=== PATIENT | female | born 1960 | race African-American/Black ===

== ENCOUNTER 2018-06-14 14:31 | Emergency (ER) | payer BC ==
--- NOTE | 2018-06-14 14:35 | PDOC ---
History of Present Illness - General History Source: Patient Exam Limitations: No Limitations - History of Present Illness Initial Comments: 06/14/18 15:53 The patient is a 57 year old female, with a significant PMH of HTN and colon cancer ( on chemo last dose last week), who presents to the emergency department with intermittent vertigo that began 2 days ago. The patient states first episode of vertigo began 2 days ago when patient sat upright from a lying position. The patient states vertigo lasted a couple of minutes accompanied with vomiting, diarrhea and fatigue. She complains vertigo worsened today, last episode was one hour ago and exacerbated with sudden movements. The episodes are shorter acting today and denies any associated n/v. The patient also mentions she went to chemotherapy last week where they told her blood count was low and needed infusion of iron. The patient denies any vision changes, dysarthria, numbness weaknes and tingling. Denies chest pain, shortness of breath, headache and dizziness. Denies fever, chills, nausea, vomit, diarrhea and constipation. Pt denies any dysuria, frequency, coughing, sneezing, shore throat. Allergies: NKDA Past surgical history: Colectomy Social history: None reported PCP: Patricia Esteves <Americo Cheng - Last Filed: 06/14/18 15:52> <Pawel Mims - Last Filed: 06/14/18 19:22> - General Chief Complaint: Lightheaded Stated Complaint: VERTIGO Time Seen by Provider: 06/14/18 14:34 Past History <Americo Cheng - Last Filed: 06/14/18 15:52> <Pawel Mims - Last Filed: 06/14/18 19:22> - Past Medical History Allergies/Adverse Reactions: Allergies Allergy/AdvReac Type Severity Reaction Status Date / Time No Known Allergies Allergy Verified 06/14/18 14:33 Home Medications: Ambulatory Orders Diazepam [Valium] 2 mg PO BID PRN #7 tablet MDD 2 06/14/18 Levothyroxine [Synthroid -] 150 mcg PO DAILY 06/14/18 Lisinopril [Zestril] 40 mg PO DAILY 06/14/18 Ondansetron HCl [Zofran] 4 mg PO TID PRN 06/14/18 Review of Systems - Review of Systems Able to Perform ROS?: Yes Comments:: 06/14/18 15:53 Constitutional - Pt denies Fever, Chills, weakness, HEENT: denies vision changes, sore throat Respiratory: Denies cough, sob, hemoptysis Cardiac: denies chest pain, palpitations, light headedness, leg swelling Abd/GI: denies abd pain, nausea, vomiting, blood per rectum, melena, diarrhea : denies dysuria, frequency, discharge Musculskelatal - denies back pain, joint swelling skin - denies bruising, erythema, rash neurological: +Vertigo + lightheaded. denies headache, numbness, focal weakness , tingling, ataxia, weakness hematologic: denies anemia, easy bruising, easy bleeding HEENTM: Yes: Symptoms Reported <Americo Cheng - Last Filed: 06/14/18 15:52> *Physical Exam - Vital Signs Last Vital Signs Temp Pulse Resp BP Pulse Ox 98.4 F 61 16 144/96 100 06/14/18 14:33 06/14/18 14:33 06/14/18 14:33 06/14/18 14:33 06/14/18 14:33 - Physical Exam Comments: 06/14/18 15:54 GENERAL: The patient is awake, alert, and fully oriented, Nontoxic - in no acute distress. HEAD: Normocephalic, atraumatic. EYES: extraocular movements intact, sclera anicteric, conjunctiva clear. extinguishing horizontal nystamgus ENT: Normal voice, Moist mucous membranes. NECK: Normal range of motion, supple without lymphadenopathy, JVD, or masses. LUNGS: Breath sounds equal, clear to auscultation bilaterally. No wheezes, no crackles, no rales. HEART: Regular rate and rhythm, normal S1 and S2 without murmur, rub or gallop. ABDOMEN: Soft, nontender, normoactive bowel sounds. No guarding, no rebound. No masses. EXTREMITIES: Normal range of motion, no edema. No clubbing or cyanosis. No cords, erythema, or tenderness. PSYCH: Normal mood, normal affect. SKIN: Warm, Dry, normal turgor, no rashes or lesions noted. NEURO: Mental status: The patient is oriented x3. Cranial nerves: Cranial nerves II through XII are intact Motor: The upper extremities are 5 over 5 in all muscle groups. The lower extremities are 5 over 5 in all muscle groups. Negative pronator drift Sensation: Sensation is intact to light touch throughout. romberg negative Cerebellar: Rcekis-ujhmeb-pnns is normal in both upper extremities. Heel-knee- najera is normal in both lower extremities. rapid alternating movements are normal.. Gait: Normal. <Americo Cheng - Last Filed: 06/14/18 15:52> Heart Score/ECG Review - ECG Impressions Comment:: 06/14/18 19:21 Twelve-lead EKG was performed and reviewed by me. There is normal sinus rhythm with a heart rate of 53 Normal axis Nonspecific T wave flattening in the lateral leads <Pawel Mims - Last Filed: 06/14/18 19:22> ED Treatment Course - LABORATORY CBC & Chemistry Diagram: 06/14/18 15:10 06/14/18 15:10 - ADDITIONAL ORDERS Additional order review: Laboratory Results 06/14/18 15:10 Sodium 140 Potassium 3.5 Chloride 105 Carbon Dioxide 30 H Anion Gap 5 L BUN 13 Creatinine 0.9 Creat Clearance w eGFR > 60 Random Glucose 100 Calcium 8.6 Total Bilirubin 0.6 AST 26 ALT 14 Alkaline Phosphatase 85 Total Protein 7.2 Albumin 3.9 06/14/18 15:10 RBC 3.11 L MCV 89.9 MCHC 33.0 RDW 22.0 H MPV 7.7 Neutrophils % No Result Required. Lymphocytes % No Result Required. - Medications Given in the ED: ED Medications Discontinued Medications Generic Name Dose Route Start Last Admin Trade Name Freq PRN Reason Stop Dose Admin Sodium Chloride 1,000 mls @ 1,000 mls/hr 06/14/18 14:46 06/14/18 15:10 Normal Saline - IV 06/14/18 15:45 1,000 mls/hr .Q1H ONE Administration Meclizine HCl 25 mg 06/14/18 14:45 06/14/18 15:05 Antivert - PO 06/14/18 14:46 25 mg ONCE ONE Administration Ondansetron HCl 4 mg 06/14/18 14:45 06/14/18 15:12 Zofran Injection IVPB 06/14/18 14:46 4 mg ONCE ONE Administration <Americo Cheng - Last Filed: 06/14/18 15:52> - LABORATORY CBC & Chemistry Diagram: 06/14/18 15:10 06/14/18 15:10 <Pawel Mims - Last Filed: 06/14/18 19:22> Medical Decision Making - Medical Decision Making 06/14/18 14:45 57y F hx of colon ca sp resecton currently o chemo (last dose last week), hypothyroidism, htn, presents with complaint of intermittent vertigo for th epast few days - present with suddent movements , lasting for a few seconds befor resolving, without associated vision changes, dysarthria, numbness/ tingling/weakness, neck pain, cp, sob, or any other focal complaints. pts exam unremarkble inculding normal cerebellar, neuro exam suspect vertigo - will obtain basic labs to r/o anemia, metabolic dernagement, consider infection due to the patients recent chemo use tobias obtain ua to r/o uti tobias give meclizine 06/14/18 17:19 pts labs reviewed noted to be slightly anemic, labs otherwise unrmarkble pt notes she feels a bit worse than before - notes any head movement makes her feel very vertiginous and uncomfortable and nauseus discussed obtining CT head due to her colon ca with concern of mets, howeve rpt waants to hold off - will reassess after she gets a dose of reglan and valium. pts exam othewise is benigng, normal finger to nose on erpeat exam. 06/14/18 17:55 pt feeling significantly improved complete resolutino of her sypmtoms ambulting around ED without any sypmtoms will dc the pt with pmdand neuro fu return precautions were discussed I discussed the physical exam findings, ancillary test results and final diagnoses with the patient. I answered all of the patient's questions. The patient was satisfied with the care received and felt comfortable with the discharge plan and treatment plan. The patient will call their primary care physician within 24 hours to arrange follow-up and will return to the Emergency Department with any new, persistent or worsening symptoms. <Pawel Mims - Last Filed: 06/14/18 19:22> *DC/Admit/Observation/Transfer - Attestations Scribe Attestion: 06/14/18 15:54 Documentation prepared by Americo Cheng, acting as medical massage therapist for Pawel Mims MD. <Americo Cheng - Last Filed: 06/14/18 15:52> - Discharge Dispostion Decision to Admit order: No <Pawel Mims - Last Filed: 06/14/18 19:22> Diagnosis at time of Disposition: Vertigo - Discharge Dispostion Disposition: HOME Condition at time of disposition: Improved - Prescriptions Prescriptions: Diazepam [Valium] 2 mg PO BID PRN #7 tablet MDD 2 PRN Reason: Vertigo - Referrals Referrals: Patricia Esteves [Primary Care Provider] - - Patient Instructions Printed Discharge Instructions: DI for Vertigo Additional Instructions: Return to the emergency department immediately with ANY new, persistent or worsening symptoms. After a share discussion, we decided to hold off on obtaining any imaging - please follow up with your doctor for further evaluation - if you symptoms return, I highly recommend obtaining the CT we discussed and following up with neurology. (Or come back to the Emergency Department and we will complete these tests). You MUST call and follow up with Dr. Rai next week for further evaluation of your symptoms. Results were discussed with you. Please make sure your doctor reviews the results of your emergency evaluation. Print Language: PANAMANIAN - Post Discharge Activity
[2018-06-14] MEDS ORDERED: MECLIZINE HCL 25 MG TABLET (FP) PO ONE (14:45)
[2018-06-14] MEDS ORDERED: ONDANSETRON 4 MG/2 ML VIAL IVPB ONE (14:45)
[2018-06-14 14:46] VITALS: BP 144/96; PULSE 61; TEMP 98.4; BMI 26.6
[2018-06-14] MEDS ORDERED: SODIUM CHLORIDE 1,000 ML IV ONE (14:46)
[2018-06-14] MEDS ORDERED: MECLIZINE HCL 25 MG TABLET (FP) ONE (14:59)
[2018-06-14] MEDS ORDERED: ONDANSETRON 4 MG/2 ML VIAL ONE (15:00)
[2018-06-14 15:40] LABS: HEMOGLOBIN 9.2 GM/dl (10.7-15.3); MCH 29.7 pg (25.7-33.7); MEAN CELL VOLUME 89.9 fl (80-96); MEAN PLT VOLUME 7.7 fl (7.5-11.1); PLATELET COUNT 183 K/MM3 (134-434); RBC 3.11 M/mm3 (3.60-5.2); WHITE BLOOD COUNT 4.1 K/mm3 (4.0-10.8)
[2018-06-14 15:41] LABS: ADD RBC MORPHOLOGY YES
[2018-06-14 15:42] LABS: ALBUMIN 3.9 g/dl (3.5-5.0); ALK PHOS 85 U/L (32-92); ANION GAP 5 MMOL/L (8-16); BILIRUBIN,TOTAL 0.6 mg/dl (0.2-1.0); BLOOD UREA NITROGEN 13 mg/dl (7-18); CALCIUM 8.6 mg/dl (8.4-10.2); CHLORIDE 105 mmol/L (98-107); CO2 30 mmol/L (22-28); CREATININE 0.9 mg/dl (0.6-1.3); GLUCOSE,RANDOM 100 mg/dl (74-106); POTASSIUM 3.5 mmol/L (3.5-5.1); SGOT/AST 26 U/L (10-42); SGPT/ALT 14 U/L (10-40); SODIUM 140 mmol/L (136-145); TOT PROT 7.2 g/dl (6.4-8.3)
[2018-06-14 16:26] LABS: ANISOCYTOSIS 2+; PLATELET ESTIMATE ADEQUATE
[2018-06-14 16:40] LABS: URINE APPEARANCE Clear; URINE BILIRUBIN Negative (NEGATIVE); URINE COLOR Yellow; URINE GLUCOSE (UA) Negative (NEGATIVE); URINE KETONE Negative (NEGATIVE); URINE LEUK ESTERASE TRACE (NEGATIVE); URINE NITRITE Negative (NEGATIVE); URINE PROTEIN Negative (NEGATIVE); URINE UROBILINOGEN 0.2 (0.2-1.0)
[2018-06-14 16:51] LABS: URINE BACTERIA FEW /hpf (NEGATIVE); URINE RBC 0-2 /hpf (0-3)
[2018-06-14] MEDS ORDERED: diazePAM 2 MG TABLET PO ONE (17:19)
[2018-06-14] MEDS ORDERED: METOCLOPRAMIDE HCL INJECTION 10 MG/2 ML VIAL IVPUSH ONE (17:19)
[2018-06-14] MEDS ORDERED: diazePAM 2 MG TABLET ONE (17:24)
--- NOTE | 2018-06-15 19:09 | EKG ---
Test Reason : Blood Pressure : / mmHG Vent. Rate : 053 BPM Atrial Rate : 053 BPM P-R Int : 166 ms QRS Dur : 060 ms QT Int : 492 ms P-R-T Axes : 080 000 -59 degrees QTc Int : 461 ms SINUS BRADYCARDIA NONSPECIFIC ST AND T WAVE ABNORMALITY ABNORMAL ECG NO PREVIOUS ECGS AVAILABLE Confirmed by PANCHO PIERRE MD ([id number]) on 06/15/2018 7:08:48 PM Referred By: ALEXIS FEGRUSON Confirmed By:PANCHO PIERRE MD
== END 2018-06-14 18:07 | disposition home or self-care (01) ==
LOC: FER 14:31
PROC: 3E033GC Introduction of Other Therapeutic Substance into Peripheral Vein, Percutaneous Approach (ICD-10-PCS; principal; 2018-06-14)
PROC: 3E0337Z Introduction of Electrolytic and Water Balance Substance into Peripheral Vein, Percutaneous Approach (ICD-10-PCS; 2018-06-14)
DX: R42 Dizziness and giddiness (principal)
CPT/HCPCS: 36415; 80053; 81003; 81015; 85025; 93005; 99283-25; J7030